=== PATIENT | male | born 1995 | race African-American/Black ===

== ENCOUNTER 2017-01-30 03:44 | Emergency (ER) | payer MEDICAID ==
[~2017-01-30] VITALS: Ht 185.4 cm; Wt 73.0 kg
[2017-01-30] MEDS ORDERED: KETOROLAC 30MG/ML VIAL IV STA (04:06)
[2017-01-30] MEDS ORDERED: SODIUM CHLORIDE 0.9% 1,000 ML IV ONE (04:06)
[2017-01-30] MEDS ORDERED: LORAZEPAM 2MG/ML CPJ IV ONE (04:15)
[2017-01-30 04:21] LABS: BASOPHILS % 1.1 % (0.0-2.0); EOSINOPHILS % 1.9 % (0.0-5.0); HEMATOCRIT. 40.3 % (42.0-52.0); HEMOGLOBIN. 13.7 g/dL (14.0-18.0); LYMPHOCYTES % 34.7 % (20.0-50.0); MEAN CORPUSCULAR HEMOGLOBIN 29.5 pg (28.0-32.0); MEAN CORPUSCULAR VOLUME 86.5 fL (80.0-94.0); MEAN PLATELET VOLUME 7.5 fl (7.4-10.4); MONOCYTES % 7.4 % (2.0-8.0); NEUTROPHILS % 54.9 % (40.0-76.0); PLATELET 220 x1000/uL (130-400); RED BLOOD CELL COUNT 4.66 mill/uL (4.7-6.1); RED CELL DISTRIBUTION WIDTH 13.4 % (11.6-14.6)
[2017-01-30 04:38] LABS: PROTHROMBIN TIME 10.8 sec (9.4-11.6)
[2017-01-30 04:45] LABS: CARBON DIOXIDE 24 mEq/L (21-32); CHLORIDE 108 mEq/L (98-107)
[2017-01-30 04:46] LABS: ETHANOL BLOOD < 10 mg/dL; TROPONIN I < 0.02 ng/mL (0.00-0.04)
[2017-01-30] MEDS ORDERED: POTASSIUM CHLORIDE 20MEQ TABLET SR PO ONE ×2 (05:00)
[2017-01-30 07:37] VITALS: BP 95/67
== END 2017-01-30 07:38 | disposition home or self-care (01) ==
LOC: ER 03:44
DX: R07.89 Other chest pain (principal); R00.2 Palpitations; R01.1 Cardiac murmur, unspecified; E87.6 Hypokalemia; F17.210 Nicotine dependence, cigarettes, uncomplicated; F12.10 Cannabis abuse, uncomplicated; F12.90 Cannabis use, unspecified, uncomplicated
CPT/HCPCS: 36415; 71010; 80053; 84484; 85025; 85610; 93005; 96361; 96374; 96375; 99285; G0482; J1885; J2060; J7030; Z7610